=== PATIENT | male | born 1955 | race Caucasian/White ===

== ENCOUNTER → 2018-12-09 12:22 | Outpatient (CLI) | payer BC ==
[2016-03-05 07:33] VITALS: BMI 25.1
[~2018-12-09 12:22] MED LIST: CYCLOBENZAPRINE10 MG PO; FLOMAX0.4 MG PO; HYDROCODONE-APA1 TAB PO; NICODERM C1 PATCH .1 TRANSDERM; OXYCODONE HCL5 MG PO
== END | disposition home or self-care (01) ==
LOC: D.RT 12:22
PROVIDERS: ATTEND Internal Medicine Pulmonary Disease
DX: R06.00 Dyspnea, unspecified (principal)